=== PATIENT | female | born 1990 | race Caucasian/White ===

== ENCOUNTER → 2023-09-19 | Outpatient (CLI) ==
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
== END ==
LOC: FBPOP 17:41
PROVIDERS: ATTEND Obstetrics & Gynecology Obstetrics
DX: O99.352 Diseases of the nervous system complicating pregnancy, second trimester (principal); G89.11 Acute pain due to trauma; Z3A.20 20 weeks gestation of pregnancy
CPT/HCPCS: 76805; 99213